=== PATIENT | male | born 1945 | race Caucasian/White ===

== ENCOUNTER 2016-05-31 10:46 | Emergency (ER) | payer BC ==
[~2016-05-31] VITALS: Ht 185.4 cm; Wt 107.3 kg
[~2016-05-31 10:46] MED LIST: ALLO300T2 PO; AMLO2.5T PO; FINA5TAB PO; IPRA0.037 NAE; LOSA1TAB PO; MOME50SP5; MULT-618 PO; OMEG10007 PO; PRED10TA PO; PSEU60TA80 PO; SODI1KIT NAE; TAMS0.4C38 PO
[2016-05-31 10:59] VITALS: TEMP 36.4; Ht 185.4 cm; Wt 107.3 kg
--- NOTE | 2016-05-31 11:33 | EMERGENCY ROOM VISIT NOTE ---
History Report prepared by Ricci: Austen Ryder Under the Supervision of: Dr. Tri Long M.D. First contact with patient: 11:16 Chief Complaint: CHEST PAIN Stated Complaint: CP, SOB, POSSIBLE BLOOD CLOT Nursing Triage Summary: pt reports L side cp that radiates into axilla since fri, progressively become worse , with increased sob , denies Nv or LYNN at this time pt reports hx of PE History of Present Illness The patient is a 71 year old male who presents to the Emergency Room with complaints of persistent shortness of breath that started 4 hours ago. The patient notes that 4 days ago he noticed a quarter-sized lump on his left lower leg. He notes that it was tender to touch and felt like a muscle cramp. He notes that the spot was never warm nor did it swell. The patient notes that a few days later that a few days later the spot moved up his leg to behind his knee. He also complains of a severe pain underneath his left armpit and worsening shortness of breath. He notes that his shortness of breath is worse with laying down and describes discomfort in his chest as pressure making it more difficult to take a deep breath. Five years ago, the patient was having similar symptoms with difficulty breathing when they found blood clots in the lower lobes of his lungs. He was put on Coumadin for 6 months. He has been off Coumadin for 4 years and hasn't had any problems since that that time. The patient denies recent travel, recent surgeries, or smoking. Source of History: patient Onset: 4 days ago Position: other (global) Timing: worsening, other (persistent) Modifying Factors (Worsening): other (laying down) Associated Symptoms: + chest pain (pressure in his chest and pain under left armpit) Note: Other associated symptoms: quarter-sized lump in left lower extremity: tender to touch and feels like a muscle cramp Denies: swelling in legs, recent travel, recent surgeries, smoking Review of Systems See HPI for pertinent positives & negatives. A total of 10 systems reviewed and were otherwise negative. Past Medical & Surgical Surgical Problems: (1) History of nasal surgery Family History Hypertension Social History Smoking Status: Never Smoker Alcohol Use: none Drug Use: none Marital Status: Housing Status: lives with family Occupation Status: retired Current/Historical Medications Scheduled Allopurinol (Zyloprim), 1 TAB PO DAILY Amlodipine (Norvasc), 2.5 MG PO DAILY Aspirin (Aspirin Ec), 81 MG PO DAILY Finasteride (Proscar), 1 TAB PO DAILY Fish Oil (Medanales-3), 1 CAP PO DAILY Ipratropium Power (Nasal) (Ipratropium Power), 2 SPRAYS TORIE BID Losartan Potassium (Cozaar), 1 TAB PO DAILY Mometasone Furoate (Nasal) (Mometasone Furoate), 2 SPRAYS NA BID Sodium Chloride-Sodium Bicarbo (Sinus Wash Kettle Neti Po), 1 DOSE TORIE DIRECTED Tamsulosin Hcl (Flomax), 1 CAP PO DAILY Scheduled PRN Pseudoephedrine-Guaifenesin (Mucinex D), 1-2 TABS PO Q12 PRN for POST NASAL DRIP Allergies Coded Allergies: Erythromycin (Verified Allergy, Unknown, diarrhea, 05/31/16) Physical Exam Vital Signs Date Time Temp Pulse Resp B/P Pulse Ox O2 Delivery O2 Flow Rate FiO2 05/31/16 13:29 68 18 128/80 98 05/31/16 12:06 68 16 144/81 99 Room Air 05/31/16 11:10 63 18 147/91 99 Room Air 05/31/16 11:08 63 05/31/16 10:59 36.4 64 20 147/91 Room Air Physical Exam Vital signs reviewed. General: Well-appearing male, in no significant distress. HEENT: No scleral icterus, PERRLA, neck supple. Atraumatic. Cardiovascular: Regular rate and rhythm, no extra sounds. Pulmonary: Clear to auscultation bilaterally, normal work of breathing. Abdomen: Soft, nontender, nondistended, positive bowel sounds. Musculoskeletal: Atraumatic, no peripheral edema. Neurologic: Patient awake alert and oriented x 3, full strength in all 4 extremities. Cranial nerves 2 through 12 grossly intact. Skin: Warm, dry, no rash Medical Decision & Procedures ER Provider Diagnostic Interpretation: Radiology results as stated below per my interpretation and radiologist interpretation. Other radiology results as stated below per my review and radiologist interpretation: BILATERAL LOWER EXTREMITY VENOUS DOPPLER HISTORY: Bilateral lower extremities swelling. COMPARISON STUDY: None. FINDINGS: There is normal compressibility, flow, and augmentation within the bilateral lower extremity deep venous systems. IMPRESSION: No DVT within the right or left lower extremity. Electronically signed by: Carrillo Jaramillo M.D. 05/31/2016 12:54 PM Dictated Date/Time: 05/31/2016 12:53 PM CHEST CTA for PULMONARY ARTERIES CT DOSE: 648.88 mGy.cm HISTORY: Atypical chest pain. Short of breath. TECHNIQUE: Multiaxial CT images of the chest were performed following the intravenous administration of contrast to evaluate the pulmonary arteries. Maximal intensity projection images were also obtained. COMPARISON STUDY: None. FINDINGS: There is a normal caliber thoracic aorta with no evidence for dissection. There is no evidence for pulmonary embolus. No pleural effusions. No pneumothorax. The liver and spleen are unremarkable. No mediastinal or hilar lymphadenopathy. The central airways are patent. A 3 mm subpleural nodule within the left lung apex on image 106. No focal lung consolidations to suggest pneumonia. The heart is mildly enlarged. IMPRESSION: 1. No evidence for pulmonary embolus. 2. Mild cardiomegaly. 3. A 3 mm subpleural nodule within the left lung apex. Please refer to the chart below for recommended follow-up. Please refer to below summary of Fleischner criteria recommendations for follow-up of incidental CT nodules (Brii Mg, Guidelines for management of small pulmonary nodules detected on CT scans: A statement from the Fleischner Society, Radiology 237: [phone].) Low Risk Patient: Minimal or no smoking or other known risk factors for malignancy <=4 mm: No follow-up needed. >4-6 mm: Initial follow-up CT at 12 months; if unchanged, no further follow-up. >6-8 mm: Initial follow-up CT at 6-12 months then at 18-24 months if no change. >8 mm: Follow-up CT at \R\3, 9, 24 months, or PET and/or biopsy. High Risk Patient: History of smoking or other known risk factors <=4 mm: Follow-up at 12 months; if unchanged, no further follow-up. >4-6 mm: Initial follow-up CT at 6-12 months then at 18-24 months if no change. >6-8 mm: Initial follow-up CT at 3-6 months then at 9-12 and 24 months if no change. >8 mm: Same as low risk patient. Note: Nodule size measured as average of length and width. Ground glass or partly solid nodules may require longer follow-up to exclude indolent adenocarcinoma. Electronically signed by: Carrillo Jaramillo M.D. 05/31/2016 12:20 PM Dictated Date/Time: 05/31/2016 12:05 PM Laboratory Results 05/31/16 11:10 Red Blood Count 3.99, Mean Corpuscular Volume 96.5, Mean Corpuscular Hemoglobin 33.1, Mean Corpuscular Hemoglobin Concent 34.3, Mean Platelet Volume 10.5, Neutrophils (%) (Auto) 63.8, Lymphocytes (%) (Auto) 18.2, Monocytes (%) (Auto) 10.5, Eosinophils (%) (Auto) 6.2, Basophils (%) (Auto) 1.1, Neutrophils # (Auto ) 4.13, Lymphocytes # (Auto) 1.18, Monocytes # (Auto) 0.68, Eosinophils # (Auto ) 0.40, Basophils # (Auto) 0.07 05/31/16 11:10 Test 05/31/16 11:10 05/31/16 11:55 White Blood Count 6.47 K/uL (4.8-10.8) Red Blood Count 3.99 M/uL (4.7-6.1) Hemoglobin 13.2 g/dL (14.0-18.0) Hematocrit 38.5 % (42-52) Mean Corpuscular Volume 96.5 fL (80-100) Mean Corpuscular Hemoglobin 33.1 pg (25-34) Mean Corpuscular Hemoglobin Concent 34.3 g/dl (32-36) Platelet Count 222 K/uL (130-400) Mean Platelet Volume 10.5 fL (7.4-10.4) Neutrophils (%) (Auto) 63.8 % Lymphocytes (%) (Auto) 18.2 % Monocytes (%) (Auto) 10.5 % Eosinophils (%) (Auto) 6.2 % Basophils (%) (Auto) 1.1 % Neutrophils # (Auto) 4.13 K/uL (1.4-6.5) Lymphocytes # (Auto) 1.18 K/uL (1.2-3.4) Monocytes # (Auto) 0.68 K/uL (0.11-0.59) Eosinophils # (Auto) 0.40 K/uL (0-0.5) Basophils # (Auto) 0.07 K/uL (0-0.2) RDW Standard Deviation 44.7 fL (36.4-46.3) RDW Coefficient of Variation 12.8 % (11.5-14.5) Immature Granulocyte % (Auto) 0.2 % Immature Granulocyte # (Auto) 0.01 K/uL (0.00-0.02) Prothrombin Time 11.1 SECONDS (9.0-12.0) Prothromb Time International Ratio 1.0 (0.9-1.1) Activated Partial Thromboplast Time 26.4 SECONDS (21.0-31.0) Partial Thromboplastin Ratio 1.0 Anion Gap 11.0 mmol/L (3-11) Est Creatinine Clear Calc Drug Dose 67.9 ml/min Estimated GFR () 64.1 Estimated GFR (Non- 55.3 BUN/Creatinine Ratio 14.4 (10-20) Calcium Level 9.2 mg/dl (8.5-10.1) Total Bilirubin 1.0 mg/dl (0.2-1) Direct Bilirubin 0.2 mg/dl (0-0.2) Aspartate Amino Transf (AST/SGOT) 24 U/L (15-37) Alanine Aminotransferase (ALT/SGPT) 41 U/L (12-78) Alkaline Phosphatase 89 U/L (45-117) Total Creatine Kinase 106 U/L (39-308) Creatine Kinase MB 1.0 ng/ml (0.5-3.6) Creatine Kinase MB Ratio 0.9 (0-3.0) Total Protein 7.6 gm/dl (6.4-8.2) Albumin 4.2 gm/dl (3.4-5.0) Bedside Troponin I 0.000 ng/ml (0-0.045) Laboratory results per my review. ECG Indication: SOB/dyspnea Rate (beats per minute): 63 Rhythm: normal sinus Findings: no acute ischemic change, no ectopy ED Course 1121: Past medical records reviewed. The patient was evaluated in room C1. A complete history and physical examination was performed. 1145: Ordered Ioversol 125 ml IV/ Interaction checking. 1322: Upon reevaluation, the patient appeared to have improvement of his symptoms. I discussed findings with her. She verbalized agreement of the treatment plan. The patient was discharged home. Medical Decision Differential diagnosis: Etiologies such as infections, reactive airway disease, pneumonia, pneumothorax , COPD, CHF, cardiac ischemia, pulmonary embolism, musculoskeletal, gastrointestinal, as well as others were entertained. This pt was evaluated and appeared to be in no distress. PE is fairly unrevealing. Given pt history, a CT scan of the chest was performed and is negative for PE. BLE dopplers were performed and are negative. There is no evidence of ACS. Pt was informed of the findings and seems hapy with plan for outpt management. Impression Primary Impression: Pleuritic chest pain Additional Impression: Left leg pain Scribe Attestation The scribe's documentation has been prepared under my direction and personally reviewed by me in its entirety. I confirm that the note above accurately reflects all work, treatment, procedures, and medical decision making performed by me. Departure Information Dispostion Home / Self-Care Referrals Brittani Wells M.D. (PCP) Forms HOME CARE DOCUMENTATION FORM, IMPORTANT VISIT INFORMATION Patient Instructions My [facility] Additional Instructions Diagnosis: Pleuritic chest pain, left leg pain Ibuprofen 600 mg every 6 hours as needed for pain with food. Follow-up with your doctor for reevaluation this week. Return to the ER for worsening of symptoms or any medical concerns. Problem Qualifiers
[2016-05-31] MEDS ORDERED: OPTIRAY 320 IV PRN (11:45)
[2016-05-31 11:59] LABS: BASO % 1.1 %; BASO ABS # 0.07 K/uL (0-0.2); COMPLETE YES; EOS % 6.2 %; HEMATOCRIT 38.5 % (42-52); IG% 0.2 %; LYMPH % 18.2 %; LYMPH ABS # 1.18 K/uL (1.2-3.4); MEAN CELL VOLUME 96.5 fL (80-100); MEAN CORPUSCULAR HEMOGLOBIN 33.1 pg (25-34); MEAN CORPUSCULAR HGB CONC 34.3 g/dl (32-36); MEAN PLATELET VOLUME 10.5 fL (7.4-10.4); MONO % 10.5 %; NEUT % 63.8 %; PLATELET COUNT 222 K/uL (130-400); RED BLOOD COUNT 3.99 M/uL (4.7-6.1); WHITE BLOOD COUNT 6.47 K/uL (4.8-10.8)
[2016-05-31 12:01] LABS: BUN/CREATININE RATIO 14.4 (10-20); CALCIUM 9.2 mg/dl (8.5-10.1); CREATININE 1.3 mg/dl (0.60-1.40); POTASSIUM 4.2 mmol/L (3.5-5.1)
[2016-05-31 12:06] LABS: CKMB/CK RATIO 0.9 (0-3.0)
[2016-05-31 12:08] LABS: PROTHROMBIN TIME (PATIENT) 11.1 SECONDS (9.0-12.0)
--- NOTE | 2016-05-31 12:22 | DIAGNOSTIC IMAGING REPORT ---
CHEST CTA for PULMONARY ARTERIES CT DOSE: 648.88 mGy.cm HISTORY: Atypical chest pain. Short of breath. TECHNIQUE: Multiaxial CT images of the chest were performed following the intravenous administration of contrast to evaluate the pulmonary arteries. Maximal intensity projection images were also obtained. COMPARISON STUDY: None. FINDINGS: There is a normal caliber thoracic aorta with no evidence for dissection. There is no evidence for pulmonary embolus. No pleural effusions. No pneumothorax. The liver and spleen are unremarkable. No mediastinal or hilar lymphadenopathy. The central airways are patent. A 3 mm subpleural nodule within the left lung apex on image 106. No focal lung consolidations to suggest pneumonia. The heart is mildly enlarged. IMPRESSION: 1. No evidence for pulmonary embolus. 2. Mild cardiomegaly. 3. A 3 mm subpleural nodule within the left lung apex. Please refer to the chart below for recommended follow-up. Please refer to below summary of Fleischner criteria recommendations for follow-up of incidental CT nodules (Brii Mg, Guidelines for management of small pulmonary nodules detected on CT scans: A statement from the Fleischner Society, Radiology 237: [phone].) Low Risk Patient: Minimal or no smoking or other known risk factors for malignancy <=4 mm: No follow-up needed. >4-6 mm: Initial follow-up CT at 12 months; if unchanged, no further follow-up. >6-8 mm: Initial follow-up CT at 6-12 months then at 18-24 months if no change. >8 mm: Follow-up CT at \R\3, 9, 24 months, or PET and/or biopsy. High Risk Patient: History of smoking or other known risk factors <=4 mm: Follow-up at 12 months; if unchanged, no further follow-up. >4-6 mm: Initial follow-up CT at 6-12 months then at 18-24 months if no change. >6-8 mm: Initial follow-up CT at 3-6 months then at 9-12 and 24 months if no change. >8 mm: Same as low risk patient. Note: Nodule size measured as average of length and width. Ground glass or partly solid nodules may require longer follow-up to exclude indolent adenocarcinoma. Electronically signed by: Carrillo Jaramillo M.D. 05/31/2016 12:20 PM Dictated Date/Time: 05/31/2016 12:05 PM
[2016-05-31] MEDS ORDERED: MOME6000 (12:26)
[2016-05-31] MEDS ORDERED: ASPI81TA28 PO (12:26)
[2016-05-31] MEDS ORDERED: IPRA0.06 NAE (12:26)
--- NOTE | 2016-05-31 12:55 | DIAGNOSTIC IMAGING REPORT ---
BILATERAL LOWER EXTREMITY VENOUS DOPPLER HISTORY: Bilateral lower extremities swelling. COMPARISON STUDY: None. FINDINGS: There is normal compressibility, flow, and augmentation within the bilateral lower extremity deep venous systems. IMPRESSION: No DVT within the right or left lower extremity. Electronically signed by: Carrillo Jaramillo M.D. 05/31/2016 12:54 PM Dictated Date/Time: 05/31/2016 12:53 PM
[2016-05-31 13:29] VITALS: BP 128/80; PULSE 68; O2SAT 98
== END 2016-05-31 13:33 | disposition home or self-care (01) ==
LOC: C.EDB 10:48 → C.EDC 13:33
DX: R07.81 Pleurodynia (principal); M79.605 Pain in left leg; Z79.82 Long term (current) use of aspirin

== ENCOUNTER 2022-11-25 08:17 | Observation (INO) ==
--- NOTE | 2022-11-17 09:23 | Anesthesiology Consultation ---
Date of Service November 17, 2022 Assessment & Plan (1) Encounter for pre-operative examination: - COVID screening: Per assessment on 11/17: No known COVID-19 positive contacts or current COVID-19 related symptoms. No recent Covid positive test result. - Cardiology visit (11/15/22): "Patient for Left hip surgery on 11/25/[address] Nunes [facility].. patient is defined as low risk as defined by using Geovani Criteria for Cardiac risk index for pre-operative risk.. His is to continue his medication therapies as defined. Patient has discussed his MTHFR mutation with orthopedic staff with plan for ASA 325mg PO post op.. EKG obtained today with no changes when compared with prior.. Stress echo obtained last year which was negative for ischemia, and known history of aortic valve sclerosis consistent with the presence of a murmur. He has had no change in functional capacity and remains asymptomatic.. No further cardiac testing is indicated at this time, as it will not change or reduce his risk to proceed with indicated procedure.. Patient is stable from a cardiovascular stand point and may proceed with hip surgery as scheduled.. HTN, goal below 140/90 -Well controlled.. Aortic valve sclerosis.. No changes in functional capacity. Repeat echo prior to next follow up to assess valvular disease. Not required prior to upcomming [sic] surgery.. MTHFR mutation.. Known history. Ortho aware and has recommend switching from ASA 81 to Full strength post op. Continue to follow with Hematology for further management." Chart Review Chart Review: Acceptable Risk for Surgery and Patient NOT seen in Pre Admission Testing History Surgery Operation Date: 11/25/22 13:05 Proposed Procedures p Left Hip Endoscopic Trochanteric Bursectomy Possible Gluteal Repair - Han Nunes MD Height/Weight Height: 6 ft 1 in Weight: 108.862 kg Allergies Allergy/AdvReac Type Severity Reaction Status Date / Time erythromycin base AdvReac Unknown diarrhea Verified 11/17/22 08:29 Medications Home Medications Medication Instructions Recorded Confirmed Last Taken allopurinol 300 mg tablet 300 mg PO QAM 12/24/17 11/17/22 05/26/21 aspirin 81 mg tablet,delayed 81 mg PO 3XWK 12/24/17 11/17/22 05/25/21 release (Sita Low Dose Aspirin) atorvastatin 20 mg tablet 20 mg PO QAM 12/24/17 11/17/2222 finasteride 5 mg tablet 5 mg PO QAM 12/24/17 11/17/22 05/26/21 pantoprazole 40 mg tablet,delayed 40 mg PO QAM 12/06/18 11/17/22 05/26/21 release alfuzosin 10 mg tablet,extended 10 mg PO QPM 07/02/19 11/17/22 05/26/21 release 24 hr guaifenesin 600 mg tablet, 600 mg PO UD PRN Congestion 07/02/19 11/17/22 Unknown extended release 12 hr (Mucinex) losartan 25 mg tablet 25 mg PO QAM 01/23/20 11/17/22 05/26/21 baclofen 10 mg tablet 10 mg PO UD PRN muscle spasms 11/17/22 11/17/22 Unknown celecoxib 200 mg capsule (Celebrex) 200 mg PO UD PRN Pain 11/17/22 11/17/22 Unknown wexhyqcqijhe-gtwuskti-kjsruy tablet 1 tab PO QAM 11/17/22 11/17/22 Unknown Past Medical History Medical History Anemia Chronic, unknown etiology Under surveillance Arthritis Arthritis of neck Arthritis, DDD- ROM limitations Cardiac murmur Echo done 03/2017 with indication of "murmur": Mild aortic sclerosis Chronic obstructive pulmonary disease CKD (chronic kidney disease) Essential tremor GERD (gastroesophageal reflux disease) Hx of gout Hx pulmonary embolism 2011 (post op complication from nasal surgery) Was on Coumadin > now just ASA 3xw Hyperlipidemia Hypertension MTHFR mutation Prostate enlargement Seasonal allergies Mucinex for this Past Family History Family History Father Dementia Mother Tremor Multiple sclerosis Past Surgical History Surgical History H/O elbow surgery right x2 History of anesthesia reaction s/p knee surgery for infection : trouble voiding afterwards. History of ankle surgery Right History of cataract surgery R/L History of colonoscopy History of partial knee replacement right (11/21/20) > had revision for infection (Bactrim for this) History of tooth extraction S/P hernia repair S/P nasal septoplasty Social History Smoking Status: Never smoker Do You Dip or Chew Tobacco: No Hx Substance Use: No substance use type: does not use Lab Results Anesthesia Preop Results Results Anesthesia Widget: WBC 8.64 K/ul (4.8-10.8) 10/25/22 Hgb 12.7 g/dl (14.0-18.0) L 10/25/22 Hct 36.5 % (42.0-52.0) L 10/25/22 Plt 217 K/uL (130-400) 10/25/22 Na 140 mmol/L (136-145) 10/25/22 K 4.0 mmol/L (3.5-5.1) 10/25/22 Cl 107 mmol/L (98-107) 10/25/22 CO2 26 mmol/L (21-32) 10/25/22 BUN 25 mg/dl (6-23) H 10/25/22 Creat 1.20 mg/dl (0.6-1.4) 10/25/22 Glucose Level 107 mg/dl (70-99(Fasting)) H 10/25/22 Testing Electrocardiogram Date: 11/15/22 SR with first degree AVB at 74bpm. Otherwise normal ECG. No significant change compared to 09/04/21 per top precipitator operator helper comparison. Echocardiogram Date: 04/05/17 LVEF 55-59%. Mildly increased concentric LV wall thickness. Grade 1 diastolic dysfunction. Mild AV sclerosis. Stress Test Date: 05/11/21 Type: DSE Stress echo was negative for inducible ischemia. Equivocal flat blood pressure response to pharmacologic stress was observed. No symptoms suggestive angina reported. Rest study: Mildly increased concentric LV wall thickness. LVEF 55 to 59%. Mild AV sclerosis/AR. Mildly enlarged aortic root. Mildly enlarged proximal ascending thoracic aorta. Compared to the report of prior study 08/14/2019, the aortic root/proximal ascending aorta measurements are stable without significant interval change per report.
[~2022-11-25 08:17] MED LIST changes: -ALLO300T2 PO; -AMLO2.5T PO; +BUPIVACAINE 0.5 % 5 MG/1 ML PF 10ML VIAL ONE; -FINA5TAB PO; -IPRA0.037 NAE; -LOSA1TAB PO; +LR 15ML/HR IV SCH; +LR 60ML/HR IV SCH; -MOME50SP5; -MULT-618 PO; -OMEG10007 PO; -PRED10TA PO; -PSEU60TA80 PO; -SODI1KIT NAE; -TAMS0.4C38 PO; +ceFAZolin 2000MG 2,000 MG/15 ML SYR IV SCH
--- NOTE | 2022-11-25 10:08 | History & Physical Report ---
Date of Service November 25, 2022 Assessment & Plan (1) Greater trochanteric pain syndrome of left lower extremity: (2) Tear of gluteus medius tendon: Plan I reviewed the plan for surgery today in detail. We reviewed the consent, and it was confirmed. Proceed as originally discussed on October 25 with left hip endoscopic trochanteric bursectomy and possible gluteal tendon repair. Did discuss that the repair may require an open incision but will attempt to do it endoscopically. History of Present Illness Chief Complaint: Left hip pain Primary Care Provider: Rodrigo Booth MD 77-year-old male presents today for surgery. He was last seen in the clinic on October 25, 2022. He reports no changes to his health history. His hip still bothers him the same manner. He was proceed with surgery. Allergies Allergy/AdvReac Type Severity Reaction Status Date / Time erythromycin base AdvReac Unknown diarrhea Verified 11/25/22 08:44 Home Medications Medication Instructions Recorded Confirmed Type allopurinol 300 mg tablet 300 mg PO QAM 12/24/17 11/25/22 History aspirin 81 mg tablet,delayed 81 mg PO 3XWK 12/24/17 11/25/22 History release (Sita Low Dose Aspirin) atorvastatin 20 mg tablet 20 mg PO QAM 12/24/17 11/25/22 History finasteride 5 mg tablet 5 mg PO QAM 12/24/17 11/25/22 History pantoprazole 40 mg tablet,delayed 40 mg PO QAM 12/06/18 11/25/22 History release alfuzosin 10 mg tablet,extended 10 mg PO QPM 07/02/19 11/25/22 History release 24 hr guaifenesin 600 mg tablet, 600 mg PO UD PRN Congestion 07/02/19 11/25/22 History extended release 12 hr (Mucinex) losartan 25 mg tablet 25 mg PO QAM 01/23/20 11/25/22 History baclofen 10 mg tablet 10 mg PO UD PRN muscle spasms 11/17/22 11/25/22 History celecoxib 200 mg capsule (Celebrex) 200 mg PO UD PRN Pain 11/17/22 11/25/22 History gzuccykifgqb-emsbadia-plbois tablet 1 tab PO QAM 11/17/22 11/25/22 History Past Med/Surg History Medical History Anemia Chronic, unknown etiology Under surveillance Arthritis Arthritis of neck Arthritis, DDD- ROM limitations Cardiac murmur Echo done 03/2017 with indication of "murmur": Mild aortic sclerosis Chronic obstructive pulmonary disease CKD (chronic kidney disease) Essential tremor GERD (gastroesophageal reflux disease) Hx of gout Hx pulmonary embolism 2011 (post op complication from nasal surgery) Was on Coumadin > now just ASA 3xw Hyperlipidemia Hypertension MTHFR mutation Prostate enlargement Seasonal allergies Mucinex for this Surgical History H/O elbow surgery right x2 History of anesthesia reaction s/p knee surgery for infection : trouble voiding afterwards. History of ankle surgery Right History of cataract surgery R/L History of colonoscopy History of partial knee replacement right (11/21/20) > had revision for infection (Bactrim for this) History of tooth extraction S/P hernia repair S/P nasal septoplasty Family History Father Dementia Mother Tremor Multiple sclerosis Social History Smoking Status: Never smoker Second Hand Exposure: No; Do You Dip or Chew Tobacco: No; Hx Substance Use: No Preferred Language: Kiswahili Communication Ability: Effective Diver Pumper Required: No Beliefs That Will Affect Care: None Current Living Situation: Spouse Feels Safe at Home: Yes Assistive Devices: Hearing Aid - Left Assistive Devices Comment: don't wear hearing aid Review of Systems All systems reviewed & are unremarkable except as noted in HPI & below. Physical Exam LLE: No overlying skin compromise about the hip. Neurovascular intact. Full range of motion. Exam unchanged from October 25 Constitutional WD/WN, vitals as above Respiratory normal respiratory effort; no respiratory distress Cardiovascular Extremities: normal capillary refill; no edema Chest (Breasts) Chest: normal inspection of chest Skin no rashes, warm and dry Psychiatric A+Ox3, euthymic affect Results & Data Results & Data Laboratory Results . Diagnostic Findings MRI shows high-grade partial if not full-thickness tear of the medius and minimus tendons of the gluteal insertion and extensive trochanteric bursitis PG Care Time/CCT Total # of Minutes Spent Total Time Spent with Patient: Total time spent is greater than 50% in coordination of care (as documented) at patient's floor/unit and/or counseling patient: Coding Level of Care Code None Diagnoses Greater trochanteric pain syndrome of left lower extremity M25.552 Tear of gluteus medius tendon S76.019A
[2022-11-25] MEDS ORDERED: ATROPINE SULFATE 0.1 MG/ML 10ML SYR IV PRN (10:14)
[2022-11-25] MEDS ORDERED: ONDANSETRON INJ 2 MG/ML 2 ML VIAL IV PRN ×2 (10:14→14:36)
[2022-11-25] MEDS ORDERED: KETOROLAC 30 MG/ML VIAL IV PRN (10:14)
[2022-11-25] MEDS ORDERED: HYDROmorphone INJ 1 MG/ML SYRINGE IV PRN (10:16)
[2022-11-25] MEDS ORDERED: fentaNYL citrate PF 100 MCG/2 ML VIAL ONE (10:20)
[2022-11-25] MEDS ORDERED: BUPIVACAINE/EPINEPHRINE 0.5% MPF 1:200,000 30 ML VIAL ONE (10:35)
[2022-11-25] MEDS ORDERED: EPINEPHrine HCL INJ 1 MG/ML 30ML ONE (10:35)
[2022-11-25] MEDS ORDERED: TRANEXAMIC ACID / 0.7% NACL 1000MG/100ML BAG IV ONE (11:08)
[2022-11-25] MEDS ORDERED: DEXAMETHASONE SOD INJ 4 MG/ML VIAL ONE (11:22)
[2022-11-25] MEDS ORDERED: ROCURONIUM BROMIDE 10 MG/ML 5 ML VIAL IV ONE ×3 (11:22→11:43)
[2022-11-25] MEDS ORDERED: LIDOCAINE 2% 2 ML VIAL/AMP(20MG/ML) INFIL ONE (11:22)
[2022-11-25] MEDS ORDERED: ePHEDrine sulfate 50 MG/ML AMP ONE (11:22)
[2022-11-25] MEDS ORDERED: PROPOFOL IV EMULSION 10 MG/ML 20 ML VIAL IV ONE (11:22)
[2022-11-25] MEDS: fentaNYL citrate PF 100 MCG/2 ML VIAL IV PRN ×4 (13:25→13:40)
--- NOTE | 2022-11-25 13:39 | Operative Report ---
PG Post Operative Report Pre & Post Diagnosis Operation Date: 11/25/22 10:00 Pre-Op Diagnosis: Greater Trochanteric Pain syndrome, partial-thickness gluteus medius tear Post-Op Diagnosis: Greater Trochanteric Pain syndrome, partial-thickness gluteus medius tear I identified the patient and participated in the time-out.: Yes Procedure Operation Date: 11/25/22 10:00 Actual Procedures p Left Hip Endoscopic Trochanteric Bursectomy, Gluteal tendon repair(Left) - Han Nunes MD Surgeon Han Nunes MD Billing Adjudicator Aleksey Burgos PA-C Estimated Blood Loss 5 Findings See Below Extensive peritrochanteric bursitis. High-grade partial thickness articular sided tear of the gluteus medius and minimus insertion. Trans tendon microfracture performed. Trans tendon repair technique: A knotless, linked medial seal, 4 anchor, double row construct was performed using 2 Arthrex 2.6 mm RC knotless fiber tacks medially with suture tapes taken laterally into a 4.75 bio composite swivel locks for standard Xbox configuration. Specimens None Anesthesia Type General Complications none Disposition Accompanied Patient To Recovery: No Disposition: Recovery Room Indications 77-year-old male with persistent laterally based hip pain without Trendelenburg gait presented with persistent signs and symptoms of a gluteal tendon tear. Advanced imaging showed a partial-thickness tear of the minimus and medius and extensive bursitis. We discussed treatment options, and given failure of nonoperative management, I did offer elective endoscopic or open gluteal tendon repair with trochanteric bursectomy. We discussed the risks and benefits in detail, as outlined in the preoperative note. He intended to proceed. Informed consent was documented in clinic. Description of Procedure On the day of surgery, the patient was greeted in the preoperative holding area. The informed consent was reviewed and confirmed by myself and the patient. The patient identified the surgical site and was marked by me. The patient was then turned over to anesthesia. The patient was taken the operating place upon the OR table. Anesthesia was induced and the airway was secured. We then positioned in a lateral decubitus position for left hip endoscopic bursectomy. All bony prominences well-padded. We used a beanbag with axillary roll. A sterile, padded Tello was available to hold the leg in abduction with a bump block to adjust rotation. Surgical timeout was called by the circulating nurse and verified all present. Antibiotics have been infused and equipment was available and functional. We proceeded by sterilizing the hip and then insufflating the greater trochanteric extra compartmental space using a spinal needle and 60 cc of quarter percent Marcaine solution with epinephrine. The operative extremity was then prepped and draped in usual sterile fashion. The padded Tello adjusted appropriate abduction and internal rotation with a bump under the ankle. Another timeout was called to ensure readiness. Then proceeded by creating a proximal and distal anterolateral peritrochanteric portals using a spinal needle at the vastus ridge for guidance. The arthroscopic trocar was then used to access the space under the IT band which was palpable using the proximal portal. We then made a stab incision in the IT band and entered the extra compartmental space using the Arthrex Chumen [place] motorized shaver. Bursal tissue was excavated using a motorized shaver about the needle for guidance. There was abundant bursitis that was debrided using a combination of motorized shaver and electrocautery wand. We obtain visualization about the vastus lateralis and gluteal tendon insertion. All bursal and inflammatory tissue was debrided extensively. The gluteal tendon insertion was identified. The insertional tissue on the anterior half of the trochanteric footprint was atrophied and thin. Several stranding fibers could be probed down to the articular side of the footprint. Degenerative tissue was debrided. There was sufficient tendon integrity to perform a trans tendon technique without complete takedown. Through a full-thickness tear, the motorized shaver was used to debride the trochanteric footprint of the gluteus medius. Trans tendon microfracture was performed using the Arthrex awl to prepare the bleeding bed underneath. A thorough bursectomy was carried out. Visualization was switched from proximal and distal to allow full visualization exploration. Hemostasis was achieved using electrocautery. After the thorough bursectomy, portals were established for the endoscopic repair. The distal anterolateral portal was already established. This was cannulated using Arthrex trimit. The distal posterolateral portal was established using a spinal needle for localization. This was established using the switching stick. The camera was then transferred to the posterior lateral portal so that visualization was established here. The proximal peritrochanteric portal was cannulated using an Arthrex trimit. Once the bony bed was prepped, the proximal row of our fixation was inserted using the proximal peritrochanteric portal. We chose 2.6 Arthrex RC knotless fiber tack anchors with suture tape in preparation for a linked medial seal. A posterior proximal anchor was placed in a similar fashion in the posterior superior aspect of the gluteus footprint, and the Fibertack insertion cannula was used to guide insertion. Purchase was strong. The linked medial seal was accomplished by taking a repair stitch from the posterior anchor and a loop stitch from the anterior anchor, and using the knotless mechanism to reduce the tissue medially. This was repeated using the posterior knotless mechanism and the anterior repair stitch. The lateral row was then planned. Using the DALA portal, the arthroscopic punch was trialed. Locations were identified for the anterolateral and posterior lateral anchors. Knotless fiber tack suture tails were then brought to the lateral anchors creating a standard Xbox configuration. The trimmed #8 cannula assisted reduction of the suture and location of the anchor positions. Lateral anchors were 4.75 bio composite swivel locks which obtained good purchase. The peritrochanteric space was then decompressed of arthroscopic fluid using suction through the cannula. Wounds were approximate using 3-0 Monocryl buried suture in the dermal layer of each portal position. This was backed up by Steri-Strips. Wounds were then dressed with sterile Xeroform, sterile gauze, ABDs, and contained by the Ioban dressing. A compressive flex master Florin wrap was placed from the thigh and around the waist. The patient tolerated the procedure well, was extubated the operating room without complication, and transferred to the PACU in stable condition. Disposition: The patient will be discharged home when same-day criteria are met. Partial weightbearing will be mandatory for the first 6 weeks. Crutches and/or walker can be used. DVT prophylaxis will be daily aspirin beginning on postop day 1. Physical therapy can begin immediately using the [facility] gluteus medius tendon repair protocol. Routine postop pain medications were prescribed. Physician assistant director of admissions attestation: Aleksey Burgos PA-C was present and scrubbed for the duration of the case. He was essential to prepping/draping, patient positioning, retraction, suture management, and assistance with wound closure. Skilled assistance was critical for leg positioning, suture management, and anchor placement for the gluteal tendon repair. I attest to the content of the Intraoperative Record and any orders documented therein. Any exceptions are noted below.
--- NOTE | 2022-11-25 14:34 | Anesthesiology Progress Note ---
Date of Service November 25, 2022 Anesthesia Post Procedure Vital Signs Vital Signs: Temp Pulse Pulse Resp BP Pulse Ox O2 Del Method 11/25/22 14:15 74 16 142/87 H 95 Room Air 11/25/22 14:05 80 20 150/90 H 94 Room Air 11/25/22 13:55 83 16 148/84 H 96 Room Air 11/25/22 13:45 36.3 C L 76 20 147/83 H 95 Room Air 11/25/22 13:35 80 18 134/79 98 Nasal Cannula 11/25/22 13:25 83 18 140/76 99 Nasal Cannula 11/25/22 13:15 91 H 15 136/74 97 Nasal Cannula 11/25/22 13:08 36.1 C L 99 H 10 L 146/85 H 96 Nasal Cannula 11/25/22 08:37 36.6 C 83 20 145/82 H 97 Room Air O2 Flow Rate 11/25/22 14:15 11/25/22 14:05 11/25/22 13:55 11/25/22 13:45 11/25/22 13:35 2 11/25/22 13:25 2 11/25/22 13:15 2 11/25/22 13:08 3 11/25/22 08:37 Pain Intensity Left Hip: Pain Intensity: 4 Transfer of Care Handoff Completed per policy Notes Mental Status: alert / awake / arousable Patient Amnestic to Procedure: Yes Nausea / Vomiting: adequately controlled Pain: adequately controlled Airway Patency, RR, SpO2: stable & adequate BP & HR: stable & adequate Hydration State: stable & adequate Anesthetic Complications: no major complications apparent
[2022-11-25] MEDS ORDERED: diphenhydrAMINE 50 MG/ML VIAL IV PRN (14:36)
[2022-11-25] MEDS ORDERED: SODIUM CHLORIDE 0.9% 1000ML 1,000 ML IV SCH (14:36)
[2022-11-25] MEDS ORDERED: oxyCODONE HCL IR 5 MG TAB (IMMEDIATE RELEASE) PO PRN (14:36)
[2022-11-25] MEDS ORDERED: METOCLOPRAMIDE HCL INJ 5 MG/ML 2 ML VIAL IV PRN (14:36)
[2022-11-25] MEDS ORDERED: HYDROmorphone INJ 0.5 MG/0.5 ML SYR IV PRN (14:36)
[2022-11-25] MEDS ORDERED: diphenhydrAMINE Capsule 25 MG CAP PO PRN (14:36)
[2022-11-25] MEDS ORDERED: NALOXONE HCL 0.4 MG/1 ML VIAL/CARP IV PRN (14:36)
[2022-11-25] MEDS ORDERED: ASPIRIN 81 MG ECTAB PO SCH (14:36)
[2022-11-25] MEDS ORDERED: BACLOFEN 10 MG TAB PO PRN (14:36)
[2022-11-25] MEDS ORDERED: bisacodyL 10 MG SUPP PR PRN (14:36)
[2022-11-25] MEDS ORDERED: guaiFENesin 600 MG TABCR PO PRN (14:36)
[2022-11-25] MEDS ORDERED: MAGNESIUM HYDROXIDE SUSP 30 ML UDC PO PRN (14:36)
[2022-11-25] MEDS: ACETAMINOPHEN 500 MG TAB PO SCH ×2 (15:13→20:55)
[2022-11-25] MEDS: ASCORBIC ACID 500 MG TAB PO SCH (17:02)
[2022-11-25] MEDS: ceFAZolin 2000MG 2,000 MG/15 ML SYR IV SCH (20:18)
[2022-11-25] MEDS: ASPIRIN 81 MG ECTAB PO SCH (20:54)
[2022-11-25] MEDS: DOCUSATE SODIUM 100 MG CAP PO SCH (20:54)
[2022-11-25] MEDS ORDERED: SENNA 8.6 MG TAB PO SCH (21:00)
[2022-11-25] MEDS ORDERED: TAMSULOSIN HCL 0.4 MG CAP PO SCH (21:00)
[2022-11-26] MEDS: ceFAZolin 2000MG 2,000 MG/15 ML SYR IV SCH (04:50)
[2022-11-26] MEDS: ACETAMINOPHEN 500 MG TAB PO SCH ×2 (05:32→13:17)
[2022-11-26] MEDS: ASCORBIC ACID 500 MG TAB PO SCH (08:15)
[2022-11-26] MEDS: ASPIRIN 81 MG ECTAB PO SCH (08:16)
[2022-11-26] MEDS: DOCUSATE SODIUM 100 MG CAP PO SCH (08:18)
[2022-11-26] MEDS ORDERED: MULTIVITAMIN TAB PO SCH (09:00)
[2022-11-26] MEDS ORDERED: FINASTERIDE 5 MG TAB PO SCH (09:00)
[2022-11-26] MEDS ORDERED: PANTOprazole 40 MG TAB PO SCH (09:00)
[2022-11-26] MEDS ORDERED: ATORVASTATIN 20 MG TAB PO SCH (09:00)
[2022-11-26] MEDS ORDERED: allopurinoL 300 MG TAB PO SCH (09:00)
[2022-11-26] MEDS ORDERED: LOSARTAN POTASSIUM 25 MG TAB PO SCH (09:00)
[2022-11-26] MEDS ORDERED: NON-FORMULARY MEDICATION (Multivitamin-Minerals-Lutein Tablet) PO SCH (09:00)
== END 2022-11-26 14:19 | disposition home or self-care (01) ==
LOC: ASU 08:17 → 3E 08:17